=== PATIENT | female | born 1965 | race Caucasian/White ===

== ENCOUNTER 2016-10-16 15:42 | Emergency (ER) | payer OTHER ==
[~2016-10-16] VITALS: Ht 160 cm; Wt 156.0 kg
[~2016-10-16 15:42] MED LIST: Amoxicillin PO; Bactrim,Septra DS 80 PO; DEXATRIM PO; NOHOMEMEDS; NORCO 5/3251 TABLET PO; PERCOCET 5/31 TABLET PO; TYLENOL ARTHRI650 M2; Tylenol Arthritis Ex PO
[2016-10-16 19:59] LABS: HEMATOCRIT 41.5 % (36.0-46.0); MCH 27.3 PG (29.0-34.0); MCHC 32.8 G/DL (30.0-36.0); MCV 83.2 FL (83-99); MEAN PLAT.VOLUME 9.6 uM^3 (9.5-12.4); PLATELET COUNT 298 K/uL (156-360); RBC DIS.WIDTH-CV 14.2 % (11.8-14.6); RBC DIS.WIDTH-SD 42.2 % (39-53); RED BLOOD COUNT 4.99 M/uL (3.80-5.20); WHITE BLOOD COUNT 8.9 K/uL (4.1-10.2)
[2016-10-16 20:10] LABS: CHLORIDE 105 mEq/L (99-109); POTASSIUM 4.5 mEq/L (3.7-5.4); SODIUM 139 mEq/L (136-147)
[2016-10-16 20:12] LABS: GLUCOSE 125 mg/dL (70-99)
[2016-10-16 20:13] LABS: ANION GAP 13 MEQ/L (2-14)
[2016-10-16 20:14] LABS: TOTAL BILIRUBIN 0.3 mg/dL (0.0-1.0)
[2016-10-16 20:16] LABS: ALKALINE PHOSPHATASE 57 IU/L (3-129); GFR ESTIMATE (CALCULATED) > 59 mL/min/
[2016-10-16 20:17] LABS: UREA NITROGEN (BUN) 16 mg/dL (9-23)
[2016-10-16 20:19] LABS: LIPASE 101 U/L (1.0-51.0)
[2016-10-16 20:27] LABS: QUANTITATIVE HCG < 4.0 MIU/ML
[2016-10-16 21:41] LABS: INFLUENZA A VIRAL ANTIGEN NEGATIVE; INFLUENZA B VIRAL ANTIGEN NEGATIVE
[2016-10-16 22:32] LABS: ADD MIUA? YES; BILIRUBIN NEGATIVE; BLOOD NEGATIVE; COLOR YELLOW ((YELLOW)); GLUCOSE (STRIP) NEGATIVE; KETONES 15; LEUKOCYTES MODERATE; NITRITE NEGATIVE; PH, URINE 7.5 (5-8); PROTEIN (STRIP) TRACE; SPECIFIC GRAVITY 1.021 (1.000-1.030); UROBILINOGEN 0.2 MG/DL (0.2-1.0)
[2016-10-16] MEDS ORDERED: TORADOL10 MG PO (22:39)
[2016-10-16] MEDS ORDERED: PROMETHAZINE HC25 M1 PO (22:39)
[2016-10-16 22:45] LABS: BACTERIA NONE SEEN; CASTS NONE SEEN /LPF; CRYSTALS NONE SEEN; EPITHELIAL CELLS 1+; MUCUS NONE SEEN; PATHOLOGICAL CAST NONE SEEN; RED BLOOD CELLS 0-5 /HPF (0-5); SMALL ROUND CELL NONE SEEN; UCUL ADDED? NO; YEAST-LIKE CELL NONE SEEN
[2016-10-16 23:06] VITALS: BP 130/68
== END 2016-10-16 23:07 | disposition home or self-care (01) ==
LOC: EME 15:42
PROVIDERS: Physician Assistant
DX: B34.9 Viral infection, unspecified (principal); R42 Dizziness and giddiness; M54.9 Dorsalgia, unspecified; R11.2 Nausea with vomiting, unspecified; R51 Headache
CPT/HCPCS: 71020; 80053; 81003; 83690; 84702; 85027; 87502; 99281; 99285; J1885; J2550; J7030

== ENCOUNTER 2017-10-02 12:02 | Emergency (ER) | payer OTHER ==
[~2017-10-02] VITALS: Ht 160 cm; Wt 79.9 kg
[~2017-10-02 12:02] MED LIST changes: +PROMETHAZINE HC25 M1 PO; +TORADOL10 MG PO
[2017-10-02 12:43] LABS: HEMATOCRIT 44.1 % (36.0-46.0); HEMOGLOBIN 14.3 G/DL (11.9-15.5); MCH 28.4 PG (29.0-34.0); MCHC 32.4 G/DL (30.0-36.0); MCV 87.7 FL (83-99); PLATELET COUNT 202 K/uL (156-360); RBC DIS.WIDTH-CV 13.3 % (11.8-14.6); RBC DIS.WIDTH-SD 42.5 % (39-53); RED BLOOD COUNT 5.03 M/uL (3.80-5.20); WHITE BLOOD COUNT 7.6 K/uL (4.1-10.2)
[2017-10-02 13:06] LABS: ALBUMIN 3.9 g/dL (3.2-4.8); CHLORIDE 108 mEq/L (99-109); POTASSIUM 3.9 mEq/L (3.7-5.4)
[2017-10-02 13:07] LABS: SODIUM 138 mEq/L (136-147)
[2017-10-02 13:09] LABS: GLUCOSE 122 mg/dL (70-99); TOTAL PROTEIN 7.4 g/dL (6.4-8.3)
[2017-10-02 13:11] LABS: TOTAL BILIRUBIN 0.4 mg/dL (0.0-1.0)
[2017-10-02 13:12] LABS: ALKALINE PHOSPHATASE 54 IU/L (3-129); CREATININE 0.7 mg/dL (0.6-1.3); GFR ESTIMATE (CALCULATED) > 59 mL/min/
[2017-10-02 13:14] LABS: AST (GOT) 41 IU/L (2-34); UREA NITROGEN (BUN) 13 mg/dL (9-23)
[2017-10-02 13:15] LABS: ALT (GPT) 52 IU/L (3-49)
[2017-10-02 13:22] LABS: QUANTITATIVE HCG < 4.0 MIU/ML
[2017-10-02 16:51] LABS: APPEARANCE CLEAR ((CLEAR)); BILIRUBIN NEGATIVE; BLOOD NEGATIVE; COLOR YELLOW ((YELLOW)); GLUCOSE (STRIP) NEGATIVE; KETONES 20; LEUKOCYTES LARGE; NITRITE NEGATIVE; PROTEIN (STRIP) NEGATIVE; SPECIFIC GRAVITY 1.019 (1.000-1.030); UROBILINOGEN 0.2 MG/DL (0.2-1.0)
[2017-10-02 17:00] LABS: BACTERIA NONE SEEN /HPF; EPITHELIAL CELLS 1+ /HPF; MUCUS TRACE /LPF; UCUL ADDED? YES; WHITE BLOOD CELLS TNTC /HPF (0-5)
[2017-10-02] MEDS ORDERED: KEFLEX500 MG PO (17:11)
[2017-10-02] MEDS ORDERED: ZOFRAN ODT4 MG PO (17:11)
[2017-10-02 17:31] VITALS: BP 107/55
== END 2017-10-02 17:34 | disposition home or self-care (01) ==
LOC: EME 12:02
PROVIDERS: Nurse Practitioner Family
DX: A08.4 Viral intestinal infection, unspecified (principal); N39.0 Urinary tract infection, site not specified; K21.9 Gastro-esophageal reflux disease without esophagitis; Z87.891 Personal history of nicotine dependence; Z88.8 Allergy status to other drugs, medicaments and biological substances
CPT/HCPCS: 80053; 81003; 84702; 85027; 87086; 87502; 99281; 99284; J1885

== ENCOUNTER 2018-01-22 15:30 | Emergency (ER) | payer OTHER ==
[~2018-01-22] VITALS: Ht 160 cm; Wt 70.5 kg
[~2018-01-22 15:30] MED LIST changes: +KEFLEX500 MG PO; +ZOFRAN ODT4 MG PO
[2018-01-22 15:57] LABS: HEMATOCRIT 40.3 % (36.0-46.0); HEMOGLOBIN 13.2 G/DL (11.9-15.5); MCH 30.1 PG (29.0-34.0); MCHC 32.8 G/DL (30.0-36.0); PLATELET COUNT 272 K/uL (156-360); RBC DIS.WIDTH-CV 12.3 % (11.8-14.6); RBC DIS.WIDTH-SD 41.7 % (39-53); RED BLOOD COUNT 4.38 M/uL (3.80-5.20)
[2018-01-22 16:11] LABS: ALBUMIN 4.5 g/dL (3.2-4.8); CHLORIDE 105 mEq/L (99-109); SODIUM 142 mEq/L (136-147)
[2018-01-22 16:13] LABS: GLUCOSE 134 mg/dL (70-99); TOTAL PROTEIN 7.8 g/dL (6.4-8.3)
[2018-01-22 16:15] LABS: TOTAL BILIRUBIN 0.2 mg/dL (0.0-1.0)
[2018-01-22 16:17] LABS: ALKALINE PHOSPHATASE 64 IU/L (3-129); CREATININE 1.1 mg/dL (0.6-1.3); GFR ESTIMATE (CALCULATED) 55 mL/min/
[2018-01-22 16:18] LABS: AST (GOT) 33 IU/L (2-34); QUANTITATIVE HCG < 4.0 MIU/ML; UREA NITROGEN (BUN) 24 mg/dL (9-23)
[2018-01-22 16:20] LABS: ALT (GPT) 41 IU/L (3-49)
[2018-01-22 16:44] LABS: APPEARANCE CLEAR ((CLEAR)); BILIRUBIN NEGATIVE; BLOOD NEGATIVE; COLOR STRAW ((YELLOW)); GLUCOSE (STRIP) NEGATIVE; KETONES NEGATIVE; LEUKOCYTES MODERATE; NITRITE NEGATIVE; PROTEIN (STRIP) NEGATIVE; SPECIFIC GRAVITY 1.009 (1.000-1.030); UROBILINOGEN 0.2 MG/DL (0.2-1.0)
[2018-01-22 16:50] LABS: BACTERIA RARE /HPF; EPITHELIAL CELLS RARE /HPF; HYALINE CASTS 0-5 /LPF; MUCUS TRACE /LPF; RED BLOOD CELLS 0-5 /HPF (0-5); UCUL ADDED? NO; WHITE BLOOD CELLS 0-5 /HPF (0-5)
[2018-01-22] MEDS ORDERED: TRAMADOL HCL50 MG PO (18:51)
[2018-01-22] MEDS ORDERED: BENTYL20 MG PO (18:51)
[2018-01-22 19:14] VITALS: BP 134/66
== END 2018-01-22 19:15 | disposition home or self-care (01) ==
LOC: EME 15:30 → RME 15:30
DX: R10.11 Right upper quadrant pain (principal); R14.0 Abdominal distension (gaseous); K76.0 Fatty (change of) liver, not elsewhere classified; K58.9 Irritable bowel syndrome, unspecified; K21.9 Gastro-esophageal reflux disease without esophagitis; Z88.8 Allergy status to other drugs, medicaments and biological substances
CPT/HCPCS: 76705; 80053; 81003; 84702; 85027; 99281; 99285

== ENCOUNTER 2018-02-21 21:04 | Emergency (ER) | payer OTHER ==
[~2018-02-21] VITALS: Ht 160 cm; Wt 70.9 kg
[~2018-02-21 21:04] MED LIST changes: +BENTYL20 MG PO; +TRAMADOL HCL50 MG PO
[2018-02-21] MEDS ORDERED: MOTRIN800 MG PO (22:08)
[2018-02-21 22:13] VITALS: BP 133/72
== END 2018-02-21 22:13 | disposition home or self-care (01) ==
LOC: EME 21:04
DX: T63.301A Toxic effect of unspecified spider venom, accidental (unintentional), initial encounter (principal); L29.9 Pruritus, unspecified; W57.XXXA Bitten or stung by nonvenomous insect and other nonvenomous arthropods, initial encounter; Z88.8 Allergy status to other drugs, medicaments and biological substances
CPT/HCPCS: 99281; 99283